=== PATIENT | male | born 1960 | race Caucasian/White ===

== ENCOUNTER → 2017-04-07 | Outpatient (CLI) | payer BC ==
--- NOTE | 2017-04-10 11:55 | SLEEPCENT ---
DATE OF PROCEDURE: 04/07/2017 REQUESTING PROVIDER: Dr. Robbie Mansfield INTERPRETATION: Nocturnal polysomnography was performed for retitration of pressure therapy in this patient with obstructive sleep apnea syndrome. For testing, a [employer] nasal mask of medium size was used, 15 cm of water pressure was initially applied to the circuit and the lights were extinguished. 7 hours and 30 minutes of data were reviewed. There were 323 minutes of sleep identified. Sleep latency was prolonged at 38 minutes. Rapid eye movement (REM) latency was normal at 96 minutes. Sleep architecture was fair with three REM periods appreciated. Overall sleep efficiency was 72%. Electrocardiogram (EKG) showed a sinus rhythm with an average heart rate of 63 beats per minute. Rate variability was seen surrounding respiratory events. Rate ranged 40 to 90 beats per minute. Electroencephalogram (EEG) showed normal waveforms for awake and sleep stages with minimal augmentation of eye movements, consistent with medication effect (fluoxetine). Respiratory events were best palliated with a CPAP to a pressure of +17, with which pressure the patient slept through REM without respiratory event or oxygen desaturation. There was significant limb activity noted over the course of the study, at least three trains of 30 events. Limb movement arousal index was elevated at 9.3. IMPRESSION: 1. Obstructive sleep apnea syndrome (G47.33). 2. Possible periodic limb movement disorder (G47.61). Limb movement arousal index of 9.3. RECOMMENDATIONS: Nightly use of pressure therapy at 17 cm of water is sufficient to address the patient's respiratory events. Interventions to reduce the frequency of arousals from limb activity may improve sleep architecture.
== END ==
LOC: M SLEEP 19:49
PROVIDERS: ATTEND Nurse Practitioner Adult Health
DX: G47.61 Periodic limb movement disorder (principal); G47.33 Obstructive sleep apnea (adult) (pediatric)

== ENCOUNTER → 2020-11-19 | Outpatient (CLI) | payer BC ==
--- NOTE | 2020-11-20 06:13 | REP ---
INDICATION: CONSTIPATION, UNSPECIFIED COMPARISON: None. TECHNIQUE: Upright view of the chest with supine and upright views of the abdomen and pelvis. FINDINGS: Frontal upright view of the chest demonstrates no acute cardiopulmonary process or free air below the diaphragm to suspect pneumoperitoneum. Supine and upright views of the abdomen and pelvis demonstrate nonspecific bowel gas pattern without obstruction or perforation. No organomegaly. No abnormal calcifications. Skeletal structures normal for age. IMPRESSION: Nonspecific bowel gas pattern. <Electronically signed by Phillip Puentes > 11/20/20 0609
== END ==
LOC: M RAD 16:43
PROVIDERS: ATTEND Physician Assistant
DX: K59.00 Constipation, unspecified (principal)

== ENCOUNTER → 2021-09-17 | Outpatient (CLI) | payer BC, SELFPAY | LOC: M RAD 09:12 | PROVIDERS: ATTEND Nurse Practitioner Adult Health | DX: F17.218 Nicotine dependence, cigarettes, with other nicotine-induced disorders (principal) ==

== ENCOUNTER → 2021-09-25 | Outpatient (REF) | payer BC | LOC: M LAB REF 18:07 | PROVIDERS: ATTEND Family Medicine | DX: J06.9 Acute upper respiratory infection, unspecified (principal) ==

== ENCOUNTER → 2022-09-26 | Outpatient (CLI) | payer BC | LOC: M RAD 09:35 | PROVIDERS: ATTEND Nurse Practitioner Adult Health | DX: Z12.2 Encounter for screening for malignant neoplasm of respiratory organs (principal); F17.218 Nicotine dependence, cigarettes, with other nicotine-induced disorders ==

== ENCOUNTER → 2023-07-22 | Outpatient (CLI) | payer BC | LOC: M PLAIMG 08:24 | PROVIDERS: ATTEND Nurse Practitioner Adult Health | DX: H70.091 Acute mastoiditis with other complications, right ear (principal) ==

== ENCOUNTER → 2023-10-16 | Outpatient (CLI) | payer BC | LOC: M RAD 07:41 | PROVIDERS: ATTEND Nurse Practitioner Adult Health | DX: Z12.2 Encounter for screening for malignant neoplasm of respiratory organs (principal); F17.218 Nicotine dependence, cigarettes, with other nicotine-induced disorders ==

== ENCOUNTER → 2024-05-10 | Outpatient (CLI) | payer BC | LOC: M RAD 11:44 | PROVIDERS: ATTEND Nurse Practitioner Adult Health | DX: R91.8 Other nonspecific abnormal finding of lung field (principal) ==

== ENCOUNTER → 2024-05-16 | Outpatient (REF) | payer BC ==
[2024-05-16 20:27] LABS: C REACTIVE PROTEIN QUANTITATIV 2.4 MG/DL (<1.0)
[2024-05-16 21:50] LABS: RHEUMATOID FACTOR QUANT 19.6 IU/ML (<14)
[2024-05-18 11:31] LABS: SSA SJOGRENS A <1.0 NEG AI (<1.0 NEG); SSB SJOGRENS B <1.0 NEG AI (<1.0 NEG)
[2024-05-18 15:24] LABS: ANA PATTERN Nuclear, Homogeneous (NEGATIVE); ANA SCREEN, IFA POSITIVE (NEGATIVE); ANA TITER > OR = 1:1280 titer (<1:40)
[2024-05-18 16:27] LABS: ANGIOTENSIN 1 CONVERTING ENZYM 57 U/L (9-67)
[2024-05-18 23:07] LABS: CYCLIC CITRULLINATED PEPTIDE < 16 UNITS (<20)
[2024-05-21 00:27] LABS: ANCA SCREEN Negative (Negative)
== END ==
LOC: M LAB REF 17:37
PROVIDERS: ATTEND Nurse Practitioner Adult Health
DX: R97.8 Other abnormal tumor markers (principal)

== ENCOUNTER → 2025-06-07 | Outpatient (CLI) | payer BC, OTHER | LOC: M RAD 14:32 | PROVIDERS: ATTEND Internal Medicine Pulmonary Disease | DX: F17.218 Nicotine dependence, cigarettes, with other nicotine-induced disorders (principal) ==

== ENCOUNTER → 2025-06-12 | Outpatient (REF) | payer OTHER ==
[2025-06-12 18:04] LABS: APPEARANCE, URINE CLEAR (CLEAR); BACTERIA, URINE AUTO NEGATIVE (NEGATIVE); BILIRUBIN, URINE AUTO NEGATIVE (NEGATIVE); BLOOD, URINE BLOOD NEGATIVE (NEGATIVE); GLUCOSE, URINE (UA) AUTO NEGATIVE (NEGATIVE); KETONE, URINE AUTO NEGATIVE (NEGATIVE); LEUKOCYTE ESTERASE, URINE AUTO NEGATIVE (NEGATIVE); MUCUS, URINE SMALL (NEGATIVE); NITRITE, URINE AUTO NEGATIVE (NEGATIVE); PROTEIN, URINE AUTO NEGATIVE (NEGATIVE); RBC, URINE AUTO 0 /HPF (0-3); SPECIFIC GRAVITY URINE AUTO 1.018 (1.002-1.035); SQUAMOUS EPITHELIAL CELL UR AU 0 /HPF (0-6); UROBILINOGEN, URINE AUTO 0.2 mg/dL (0.0-2.0); WBC, URINE AUTO 0 /HPF (0-3)
[2025-06-12 18:10] LABS: TOTAL PROTEIN,RANDOM URINE 18.9 MG/DL (0.0-14.0)
== END ==
LOC: M SFHCRHEU 15:29
PROVIDERS: ATTEND Internal Medicine
DX: R76.8 Other specified abnormal immunological findings in serum (principal)

== ENCOUNTER → 2025-06-13 | Outpatient (REF) | payer OTHER ==
[2025-06-13 19:25] LABS: BASO # 0.1 10^3/uL (0.0-0.2); BASO % 0.7 % (0.0-1.0); EOS # 0.3 10^3/uL (0.0-0.5); EOS % 3.4 % (0.0-3.0); LYMPH # 2.4 10^3/uL (1.5-5.0); LYMPH % 29.0 % (24.0-44.0); MONO # 0.4 10^3/uL (0.0-0.8); MONO % 5.1 % (2.0-8.0); NEUTROPHILS # 5.1 10^3/uL (1.5-8.5); NEUTROPHILS % 61.7 % (36.0-66.0); PLATELET COUNT, AUTOMATED 268 10^3/uL (150-450)
[2025-06-13 19:31] LABS: ERYTHROCYTE SEDIMENTATION RATE 41 mm/hr (0-20)
[2025-06-13 20:01] LABS: ALT/SGPT 13 U/L (7.0-40); AST/SGOT 14 U/L (<34); C REACTIVE PROTEIN QUANTITATIV 0.83 MG/DL (<1.0); CALCIUM LEVEL 9.1 MG/DL (8.3-10.6); CARBON DIOXIDE LEVEL 29 MMOL/L (20-31); CHLORIDE LEVEL 99 MMOL/L (98-107); COMPLEMENT C4 12.2 MG/DL (12-36); CREATININE FOR GFR 0.93 MG/DL (0.70-1.30); GLOMERULAR FILTRATION RATE > 90.0 (>49); IRON (FE) 50 UG/DL (65-175); MAGNESIUM LEVEL 1.6 MG/DL (1.8-2.4); PERCENT SATURATION 17.2 % (19.7-50.0); PHOSPHORUS LEVEL 2.9 MG/DL (2.4-5.1); POTASSIUM SERUM 3.2 MMOL/L (3.5-5.1); SODIUM LEVEL 139 MMOL/L (136-145); TOTAL 25(OH) VITAMIN D 38.7 NG/ML (20.0-100.0); VITAMIN B12 LEVEL 378 PG/ML (211-911)
[2025-06-15 14:58] LABS: EBV AB TO NUCLEAR ANTIGEN < 18.00 U/mL (<18.00); EBV VIRAL CAPSID AG IGG 388.00 U/mL (<18.00); EBV VIRAL CAPSID AG IGM < 36.00 U/mL (<36.00)
[2025-06-17 09:52] LABS: DRVVT MIX INTERPRET Positive; dRVVT Confirm Positive (Negative)
[2025-06-17 10:27] LABS: PTT-LA 57 sec (<=40)
[2025-06-17 19:38] LABS: COMPLEMENT TOTAL (CH50) 24 U/mL (31-60)
[2025-06-18 01:57] LABS: NICOTINAMIDE 30 ng/mL (see note); NICOTINIC ACID < 20 ng/mL (see note); VITAMIN B2 (RIBOFLAVIN) 27.8 nmol/L (6.2-39.0)
[2025-06-19 10:22] LABS: VITAMIN C, ASCORBIC ACID < 0.1 mg/dL (0.2-2.1)
[2025-06-19 17:17] LABS: VITAMIN B1 LEVEL WHOLE BLOOD 113 nmol/L (78-185)
[2025-06-25 14:22] LABS: VITAMIN B6,PYRIDOXAL PHOSPHATE 2.9 ng/mL (2.1-21.7)
[2025-06-28 09:22] LABS: VITAMIN B7 (BIOTIN) 1391.5 pg/mL (221.0-3004.0)
== END ==
LOC: M SFHCRHEU 14:16
PROVIDERS: ATTEND Internal Medicine
DX: R76.8 Other specified abnormal immunological findings in serum (principal); M25.50 Pain in unspecified joint; M25.40 Effusion, unspecified joint; R53.83 Other fatigue

== ENCOUNTER → 2025-06-26 | Outpatient (CLI) | payer OTHER | LOC: M RAD 10:53 | PROVIDERS: ATTEND Internal Medicine | DX: M25.50 Pain in unspecified joint (principal); M25.40 Effusion, unspecified joint ==